=== PATIENT | female | born 1945 | race Caucasian/White ===

== ENCOUNTER 2021-10-07 11:01 | Inpatient (IN) | payer MEDICARE, MEDICAID ==
[~2021-10-07] VITALS: Ht 157.5 cm; Wt 62.6 kg
[~2021-10-07 11:01] MED LIST: ARIP5TAB37 PO; CHOL100018 PO; ISON300T17 PO; MULT-1238 PO; PYRI-6 PO
[2021-10-07] MEDS ORDERED: LORazepam 2 MG TABLET PO PRN ×2 (13:30→14:30)
[2021-10-07] MEDS ORDERED: ZOLPIDEM TARTRATE 10 MG TABLET PO PRN ×2 (13:30→14:30)
[2021-10-07] MEDS ORDERED: HALOPERIDOL 5 MG TABLET PO PRN ×2 (13:30→14:30)
[2021-10-07] MEDS ORDERED: ARIP15TA27 PO (13:31)
[2021-10-07] MEDS ORDERED: MULT1TAB28 PO (13:31)
[2021-10-07] MEDS ORDERED: CHOL25TA4 PO (13:31)
[2021-10-07 14:49] LABS: BASOPHILS % (AUTO) 0.4 % (0.0-2.0); EOSINOPHILS % (AUTO) 0.1 % (1.0-6.0); HEMATOCRIT 41.2 % (36-46); HEMOGLOBIN 13.4 g/dL (12.0-16.0); LYMPHOCYTES # (AUTO) 1.2 K/uL (1.0-4.8); LYMPHOCYTES % (AUTO) 23.3 % (22.0-44.0); MEAN CORPUSCULAR HEMOGLOBIN 27.1 pg (26.0-34.0); MEAN CORPUSCULAR HGB CONC 32.5 G/dL (31.0-37.0); MEAN CORPUSCULAR VOLUME 84 fL (80-100); MONOCYTES # (AUTO) 0.4 K/uL (0.1-1.0); MONOCYTES % (AUTO) 8.5 % (2.0-9.0); NEUTROPHILS # (AUTO) 3.4 K/uL (1.8-7.7); NEUTROPHILS % (AUTO) 67.7 % (40.0-70.0); PLATELET COUNT (AUTO) 148 K/uL (150-450); RED BLOOD CELL COUNT(AUTO) 4.94 MIL/uL (4.00-5.20); RED CELL DISTRIBUTION WIDTH 15.6 % (11.5-14.5)
[2021-10-07 14:49] LABS: COVID AG,FIA SOURCE NASAL SWAB
[2021-10-07 15:00] LABS: ANION GAP 6 mmol/L (8-16); CALCIUM, TOTAL 9.1 mg/dL (8.8-10.5); CARBON DIOXIDE 28 mmol/L (22-29); CHLORIDE 111 mmol/L (98-107); CREATININE 0.77 mg/dL (0.60-1.30); GLUCOSE,RANDOM 146 mg/dL (70-110); POTASSIUM 3.5 mmol/L (3.5-5.1); SODIUM SERUM 145 mmol/L (136-145); UREA NITROGEN, BLOOD 22 mg/dL (7-18)
[2021-10-07 15:06] LABS: ALANINE AMINOTRANSFERASE 27 U/L (12-78); ALBUMIN 3.6 g/dL (3.4-5.0); ALKALINE PHOSPHATASE 97 U/L (46-116); ASPARTATE AMINOTRANSFERASE 17 U/L (15-37); BILIRUBIN,TOTAL 0.3 mg/dL (0.1-1.0); TOTAL PROTEIN, SERUM 6.4 g/dL (6.4-8.2)
[2021-10-07 15:08] LABS: GLOMERULAR FILTR. RATE CALC > 60 mL/min (>60)
[2021-10-07 16:57] VITALS: BP 152/75
[2021-10-07] MEDS ORDERED: CloNIDine HCL 0.1 MG TABLET PO PRN (17:15)
[2021-10-08] MEDS ORDERED: PETROLATUM,WHITE 28 GM JELLY TP PRN (06:45)
[2021-10-08] MEDS ORDERED: ALBUTEROL SULFATE HFA 90 MCG/PUFF 8 GM INHALER IH PRN (06:45)
[2021-10-08] MEDS ORDERED: IBUPROFEN 400 MG TABLET PO PRN (06:45)
[2021-10-08] MEDS ORDERED: NICOTINE 14 MG/24 HOUR PATCH TD PRN (06:45)
[2021-10-08] MEDS ORDERED: CloNIDine HCL 0.1 MG TABLET PO PRN (06:45)
[2021-10-08] MEDS ORDERED: GuaiFENesin/D-METHORPHAN [SUGAR-FREE] 200-20MG/10 ML SYRUP UDCUP PO PRN (06:45)
[2021-10-08] MEDS ORDERED: MAG HYDROX/AL HYDROX/SIMETH ES 30 ML SUSPENSION UDCUP PO PRN (06:45)
[2021-10-08] MEDS ORDERED: ACETAMINOPHEN 325 MG TABLET PO PRN (06:45)
[2021-10-08] MEDS ORDERED: ONDANSETRON HCL 4 MG TABLET PO PRN (06:45)
[2021-10-08] MEDS ORDERED: LOPERAMIDE HCL 2 MG CAPSULE PO PRN (06:45)
[2021-10-08] MEDS ORDERED: MAGNESIUM HYDROXIDE SUSPENSION 30 ML UDCUP PO PRN (06:45)
[2021-10-08] MEDS ORDERED: DOCUSATE SODIUM 100 MG CAPSULE PO PRN (06:45)
[2021-10-08 08:00] VITALS: BP 155/76
[2021-10-08] MEDS: ISONIAZID 300 MG TABLET PO SCH (09:00)
[2021-10-08] MEDS: CHOLECALCIFEROL (VIT D3) 1,000 UNITS [25 MCG] TABLET PO SCH ×3 (09:00→16:34)
[2021-10-08] MEDS: PYRIDOXINE HCL 50 MG TABLET PO SCH (09:00)
[2021-10-08] MEDS: ARIPiprazole 15 MG TABLET PO SCH (11:45)
[2021-10-08 16:00] VITALS: BP 129/70
[2021-10-09 08:39] VITALS: BP 138/85
[2021-10-09] MEDS: ISONIAZID 300 MG TABLET PO SCH (08:39)
[2021-10-09] MEDS: CHOLECALCIFEROL (VIT D3) 1,000 UNITS [25 MCG] TABLET PO SCH ×2 (08:39→16:36)
[2021-10-09] MEDS: ARIPiprazole 15 MG TABLET PO SCH (08:39)
[2021-10-09] MEDS: PYRIDOXINE HCL 50 MG TABLET PO SCH (08:39)
[2021-10-09 16:09] VITALS: BP 123/68
[2021-10-10 04:54] VITALS: BP 144/61
[2021-10-10 08:00] VITALS: BP 126/57
[2021-10-10] MEDS: ARIPiprazole 15 MG TABLET PO SCH (09:12)
[2021-10-10] MEDS: CHOLECALCIFEROL (VIT D3) 1,000 UNITS [25 MCG] TABLET PO SCH ×2 (09:12→17:59)
[2021-10-10] MEDS: PYRIDOXINE HCL 50 MG TABLET PO SCH (09:12)
[2021-10-10 16:27] VITALS: BP 138/78
[2021-10-11 09:04] VITALS: BP 133/60
[2021-10-11] MEDS: ARIPiprazole 15 MG TABLET PO SCH (10:01)
[2021-10-11] MEDS: CHOLECALCIFEROL (VIT D3) 1,000 UNITS [25 MCG] TABLET PO SCH ×2 (10:01→16:36)
[2021-10-11] MEDS: PYRIDOXINE HCL 50 MG TABLET PO SCH (10:01)
[2021-10-11 16:17] VITALS: BP 142/60
[2021-10-12] MEDS: PYRIDOXINE HCL 50 MG TABLET PO SCH (08:46)
[2021-10-12] MEDS: ARIPiprazole 15 MG TABLET PO SCH (08:46)
[2021-10-12] MEDS: CHOLECALCIFEROL (VIT D3) 1,000 UNITS [25 MCG] TABLET PO SCH ×2 (08:47→16:13)
[2021-10-12 08:56] VITALS: BP 136/66
[2021-10-12 16:42] VITALS: BP 112/79
[2021-10-13 06:09] LABS: COVID AG,FIA SOURCE NASAL SWAB
[2021-10-13] MEDS: PYRIDOXINE HCL 50 MG TABLET PO SCH (08:54)
[2021-10-13] MEDS: CHOLECALCIFEROL (VIT D3) 1,000 UNITS [25 MCG] TABLET PO SCH ×2 (08:54→16:27)
[2021-10-13] MEDS: ARIPiprazole 15 MG TABLET PO SCH (08:54)
[2021-10-13 09:41] VITALS: BP 102/70
[2021-10-13 18:09] VITALS: BP 134/60
[2021-10-14 04:01] VITALS: BP 123/87
[2021-10-14 08:00] VITALS: BP 134/65
[2021-10-14] MEDS: PYRIDOXINE HCL 50 MG TABLET PO SCH (09:02)
[2021-10-14] MEDS: CHOLECALCIFEROL (VIT D3) 1,000 UNITS [25 MCG] TABLET PO SCH ×2 (09:02→16:16)
[2021-10-14] MEDS: ARIPiprazole 15 MG TABLET PO SCH (09:02)
[2021-10-14 10:10] VITALS: BP 134/65
[2021-10-14 16:11] VITALS: BP 125/51
[2021-10-14 16:12] VITALS: BP 125/61
[2021-10-15 08:11] VITALS: BP 132/60
[2021-10-15] MEDS: ARIPiprazole 15 MG TABLET PO SCH (08:59)
[2021-10-15] MEDS: CHOLECALCIFEROL (VIT D3) 1,000 UNITS [25 MCG] TABLET PO SCH ×2 (08:59→16:42)
[2021-10-15] MEDS: PYRIDOXINE HCL 50 MG TABLET PO SCH (08:59)
[2021-10-16] MEDS: PYRIDOXINE HCL 50 MG TABLET PO SCH (09:05)
[2021-10-16] MEDS: ARIPiprazole 10 MG TABLET PO SCH (09:05)
[2021-10-16] MEDS: CHOLECALCIFEROL (VIT D3) 1,000 UNITS [25 MCG] TABLET PO SCH ×2 (09:05→16:55)
[2021-10-16 10:03] VITALS: BP 119/56
[2021-10-16 16:07] VITALS: BP 144/60
[2021-10-17 08:30] VITALS: BP 132/70
[2021-10-17] MEDS: ARIPiprazole 10 MG TABLET PO SCH (09:10)
[2021-10-17] MEDS: PYRIDOXINE HCL 50 MG TABLET PO SCH (09:11)
[2021-10-17] MEDS: CHOLECALCIFEROL (VIT D3) 1,000 UNITS [25 MCG] TABLET PO SCH ×2 (09:11→16:17)
[2021-10-17 16:00] VITALS: BP 118/69
[2021-10-18] MEDS: PYRIDOXINE HCL 50 MG TABLET PO SCH (09:15)
[2021-10-18] MEDS: CHOLECALCIFEROL (VIT D3) 1,000 UNITS [25 MCG] TABLET PO SCH ×2 (09:15→16:17)
[2021-10-18] MEDS: ARIPiprazole 10 MG TABLET PO SCH (09:16)
[2021-10-18 09:55] VITALS: BP 134/91
[2021-10-18 16:30] VITALS: BP 133/71
[2021-10-19 08:00] VITALS: BP 139/67
[2021-10-19] MEDS: ARIPiprazole 10 MG TABLET PO SCH (09:16)
[2021-10-19] MEDS: PYRIDOXINE HCL 50 MG TABLET PO SCH (09:16)
[2021-10-19] MEDS: CHOLECALCIFEROL (VIT D3) 1,000 UNITS [25 MCG] TABLET PO SCH ×2 (09:16→16:31)
[2021-10-19 16:00] VITALS: BP 150/58
[2021-10-19 20:26] VITALS: BP 146/77
[2021-10-20 07:44] LABS: COVID AG,FIA SOURCE NASAL SWAB
[2021-10-20 08:12] VITALS: BP 108/78
[2021-10-20] MEDS: PYRIDOXINE HCL 50 MG TABLET PO SCH (08:53)
[2021-10-20] MEDS: CHOLECALCIFEROL (VIT D3) 1,000 UNITS [25 MCG] TABLET PO SCH ×2 (08:53→16:16)
[2021-10-20] MEDS: ARIPiprazole 10 MG TABLET PO SCH (08:53)
[2021-10-20 16:00] VITALS: BP 125/69
[2021-10-21] MEDS: PYRIDOXINE HCL 50 MG TABLET PO SCH (08:35)
[2021-10-21] MEDS: ARIPiprazole 10 MG TABLET PO SCH (08:35)
[2021-10-21] MEDS: CHOLECALCIFEROL (VIT D3) 1,000 UNITS [25 MCG] TABLET PO SCH ×2 (08:35→16:16)
[2021-10-21 09:03] VITALS: BP 159/72
[2021-10-21 13:51] LABS: APPEARANCE,URINE CLEAR (CLEAR); BILIRUBIN,URINE NEGATIVE (NEGATIVE); GLUCOSE, URINE (UA) NEGATIVE (NEGATIVE); KETONES,URINE NEGATIVE (NEGATIVE); LEUKOCYTE ESTERASE ,URINE SMALL (NEGATIVE); NITRATE,URINE NEGATIVE (NEGATIVE); OCCULT BLOOD,URINE NEGATIVE (NEGATIVE); PH,URINE 6.5 (5.0-8.0); PROTEIN,URINE NEGATIVE (NEGATIVE); SPECIFIC GRAVITIY, URINE 1.009 (1.003-1.030); UROBILINOGEN,URINE <=1.0 mg/dL (<=1.0)
[2021-10-21 14:27] LABS: BACTERIA,URINE Many /HPF (None Seen); RBC,URINE None Seen /HPF (0-2)
[2021-10-21 14:28] LABS: SQUAMOUS EPITHELIAL CELL,UR Few /LPF (None Seen)
[2021-10-21 16:17] VITALS: BP 114/69
[2021-10-21] MEDS: CIPROFLOXACIN HCL 500 MG TABLET PO SCH (18:22)
[2021-10-22 08:00] VITALS: BP 99/45
[2021-10-22] MEDS: CHOLECALCIFEROL (VIT D3) 1,000 UNITS [25 MCG] TABLET PO SCH ×2 (08:49→16:22)
[2021-10-22] MEDS: CIPROFLOXACIN HCL 500 MG TABLET PO SCH ×2 (08:49→16:22)
[2021-10-22] MEDS: PYRIDOXINE HCL 50 MG TABLET PO SCH (08:50)
[2021-10-22] MEDS: ARIPiprazole 10 MG TABLET PO SCH (08:50)
[2021-10-22 16:34] VITALS: BP 111/63
[2021-10-23 08:04] VITALS: BP 130/64
[2021-10-23] MEDS: CHOLECALCIFEROL (VIT D3) 1,000 UNITS [25 MCG] TABLET PO SCH ×2 (09:18→17:08)
[2021-10-23] MEDS: CIPROFLOXACIN HCL 500 MG TABLET PO SCH ×2 (09:19→17:08)
[2021-10-23] MEDS: ARIPiprazole 10 MG TABLET PO SCH (09:19)
[2021-10-23] MEDS: PYRIDOXINE HCL 50 MG TABLET PO SCH (09:19)
[2021-10-23 16:46] VITALS: BP 112/58
[2021-10-23 16:50] VITALS: BP 112/58
[2021-10-24 08:00] VITALS: BP 120/64
[2021-10-24] MEDS: CIPROFLOXACIN HCL 500 MG TABLET PO SCH ×2 (08:49→16:02)
[2021-10-24] MEDS: CHOLECALCIFEROL (VIT D3) 1,000 UNITS [25 MCG] TABLET PO SCH ×2 (08:49→16:02)
[2021-10-24] MEDS: ARIPiprazole 10 MG TABLET PO SCH (08:49)
[2021-10-24] MEDS: PYRIDOXINE HCL 50 MG TABLET PO SCH (08:49)
[2021-10-24 16:00] VITALS: BP 99/89
[2021-10-24 17:08] VITALS: BP 109/69
[2021-10-25] MEDS: CIPROFLOXACIN HCL 500 MG TABLET PO SCH ×2 (08:58→16:44)
[2021-10-25] MEDS: ARIPiprazole 10 MG TABLET PO SCH (09:00)
[2021-10-25] MEDS: PYRIDOXINE HCL 50 MG TABLET PO SCH (09:00)
[2021-10-25] MEDS: CHOLECALCIFEROL (VIT D3) 1,000 UNITS [25 MCG] TABLET PO SCH ×2 (09:00→16:44)
[2021-10-25 09:39] VITALS: BP 142/71
[2021-10-25 16:38] VITALS: BP 149/62
[2021-10-26 08:00] VITALS: BP 99/70
[2021-10-26] MEDS: CHOLECALCIFEROL (VIT D3) 1,000 UNITS [25 MCG] TABLET PO SCH ×2 (08:42→16:59)
[2021-10-26] MEDS: CIPROFLOXACIN HCL 500 MG TABLET PO SCH (08:42)
[2021-10-26] MEDS: ARIPiprazole 10 MG TABLET PO SCH (08:42)
[2021-10-26] MEDS: PYRIDOXINE HCL 50 MG TABLET PO SCH (08:43)
[2021-10-26 15:45] VITALS: BP 149/76
[2021-10-26 16:00] VITALS: BP 121/79
[2021-10-26 16:30] VITALS: BP 128/75
[2021-10-26 17:00] VITALS: BP 130/82
[2021-10-26 20:50] VITALS: BP 145/61
[2021-10-27 07:19] LABS: COVID AG,FIA SOURCE NASAL SWAB
[2021-10-27] MEDS: PYRIDOXINE HCL 50 MG TABLET PO SCH (08:27)
[2021-10-27] MEDS: ARIPiprazole 10 MG TABLET PO SCH (08:27)
[2021-10-27] MEDS: CHOLECALCIFEROL (VIT D3) 1,000 UNITS [25 MCG] TABLET PO SCH ×2 (08:27→16:48)
[2021-10-27 09:19] VITALS: BP 135/60
[2021-10-27 16:18] VITALS: BP 147/61
[2021-10-27 20:47] VITALS: BP 126/60
[2021-10-28] MEDS: ARIPiprazole 10 MG TABLET PO SCH (08:57)
[2021-10-28] MEDS: PYRIDOXINE HCL 50 MG TABLET PO SCH (08:58)
[2021-10-28] MEDS: CHOLECALCIFEROL (VIT D3) 1,000 UNITS [25 MCG] TABLET PO SCH ×2 (08:58→17:02)
[2021-10-28 09:53] VITALS: BP 153/77
[2021-10-28 17:03] VITALS: BP 120/69
[2021-10-29] MEDS: ARIPiprazole 10 MG TABLET PO SCH (08:40)
[2021-10-29] MEDS: CHOLECALCIFEROL (VIT D3) 1,000 UNITS [25 MCG] TABLET PO SCH ×2 (08:40→16:49)
[2021-10-29] MEDS: PYRIDOXINE HCL 50 MG TABLET PO SCH (08:41)
[2021-10-29 09:44] VITALS: BP 130/69
[2021-10-30 08:00] VITALS: BP 160/75
[2021-10-30] MEDS: PYRIDOXINE HCL 50 MG TABLET PO SCH (08:38)
[2021-10-30] MEDS: CHOLECALCIFEROL (VIT D3) 1,000 UNITS [25 MCG] TABLET PO SCH ×2 (08:38→16:01)
[2021-10-30] MEDS: ARIPiprazole 10 MG TABLET PO SCH (08:39)
[2021-10-30] MEDS ORDERED: ARIP10TA38 PO (10:57)
== END 2021-10-30 16:10 | disposition home or self-care (01) | DRG 885 ==
LOC: EMS 11:12 → 3EI 14:26 → 3EX 10-10 16:29
PROVIDERS: ADMIT Psychiatry & Neurology Child & Adolescent Psychiatry; ATTEND Psychiatry & Neurology Child & Adolescent Psychiatry
DX: F20.0 Paranoid schizophrenia (principal); F03.91 Unspecified dementia, unspecified severity, with behavioral disturbance; E55.9 Vitamin D deficiency, unspecified; F31.9 Bipolar disorder, unspecified; F41.9 Anxiety disorder, unspecified; G47.00 Insomnia, unspecified; R73.9 Hyperglycemia, unspecified; Z20.822 Contact with and (suspected) exposure to COVID-19; K59.00 Constipation, unspecified; Z86.15 Personal history of latent tuberculosis infection; Z90.710 Acquired absence of both cervix and uterus
CPT/HCPCS: 80053; 81001; 85025; 87081; 87086; 99285; G0378; G0480